=== PATIENT | male | born 1980 | race Asian ===

== ENCOUNTER 2020-12-11 13:57 | Emergency (ER) | payer OTHER ==
[~2020-12-11] VITALS: Ht 177.8 cm; Wt 89.8 kg
[2020-12-11 14:07] VITALS: Ht 177.8 cm; Wt 89.8 kg
[2020-12-11] MEDS ORDERED: IBU600 M2 PO (15:52)
[2020-12-11 16:15] VITALS: BP 145/82
== END 2020-12-11 16:15 | disposition home or self-care (01) ==
LOC: ED 13:57
DX: S43.015A Anterior dislocation of left humerus, initial encounter (principal); X50.0XXA Overexertion from strenuous movement or load, initial encounter; Y93.89 Activity, other specified; Y92.89 Other specified places as the place of occurrence of the external cause; Y99.8 Other external cause status